=== PATIENT | male | born 1940 | race Caucasian/White ===

== ENCOUNTER 2021-10-03 06:10 | Day surgery (SDC) | payer MEDICARE ==
[~2021-10-03] VITALS: Ht 172.7 cm; Wt 63.6 kg
[2021-10-03] VITALS (8 sets, daily range): BP systolic 108–157; BP diastolic 46–115
[2021-10-03] MEDS ORDERED: fentaNYL/PF 50MCG/1 ML 2ML syringe ONE (06:22)
[2021-10-03] MEDS ORDERED: levoFLOXACIN-Levaquin 500mg/D5 100 ML IV ONE (06:22)
[2021-10-03] MEDS ORDERED: LIDOcaine Viscous 15ml cup ONE (06:22)
[2021-10-03] MEDS ORDERED: MIDAZolam 1 MG/ML 5ML VIAL ONE (06:22)
[2021-10-03] MEDS ORDERED: glucagon, human recombinant 1mg kit ONE (06:23)
[2021-10-03] MEDS ORDERED: iohexol 300 MG/1 ML 50ml polymer ONE (06:23)
[2021-10-03] MEDS ORDERED: NAPR220C15 PO (06:44)
[2021-10-03] MEDS ORDERED: CYAN500T71 PO (06:44)
[2021-10-03 07:06] LABS: BASOPHILS % (AUTO) 0.3 % (0-1); EOSINOPHILS # (AUTO) 0.1 X10'3 (0-0.9); EOSINOPHILS % (AUTO) 1.4 % (0-6); HEMATOCRIT 38.6 % (42.0-52.0); HEMOGLOBIN 13.4 g/dl (14.0-17.9); LYMPHOCYTES # (AUTO) 0.9 X10'3 (1.1-4.8); MEAN CORPUSCULAR HEMOGLOBIN 32.2 PG (27.0-31.0); MEAN CORPUSCULAR HGB CONC 34.7 g/dL (33.0-36.5); MEAN CORPUSCULAR VOLUME 92.8 FL (78-98); MEAN PLATELET VOLUME 8.4 FL (7.4-10.4); MONOCYTES # (AUTO) 0.5 X10'3 (0-0.9); MONOCYTES % (AUTO) 7.1 % (2-12); NEUTROPHILS # (AUTO) 5.7 X10'3 (1.8-7.7); NEUTROPHILS % (AUTO) 78.2 % (42-75); PLATELET COUNT 259 X10'3 (140-440); RED BLOOD COUNT 4.16 X10'6 (4.70-6.10); RED CELL DISTRIBUTION WIDTH 14.4 % (11.5-14.5); WHITE BLOOD COUNT 7.3 X10'3 (4.5-11.0)
[2021-10-03 07:18] LABS: ALANINE AMINOTRANSFERASE 89 U/L (12-78); ALBUMIN 2.7 G/DL (3.4-5.0); ALKALINE PHOSPHATASE 473 IU/L (46-116); ANION GAP 6 (8-16); ASPARTATE AMINO TRANSFERASE 70 U/L (10-37); BILIRUBIN,TOTAL 3.8 MG/DL (0.1-1.0); BLOOD UREA NITROGEN 12 MG/DL (7-18); BUN/CREATININE RATIO 16.2 (5.4-32.0); CALCIUM 8.9 MG/DL (8.5-10.1); CHLORIDE 107 MMOL/L (99-107); CREATININE 0.74 MG/DL (0.60-1.10); GLUCOSE 100 MG/DL (70-104); POTASSIUM 3.7 MMOL/L (3.5-5.1); SODIUM 142 MMOL/L (135-145); TOTAL CARBON DIOXIDE 28.7 MMOL/L (24-32); eGFR > 90 ML/MIN
[2021-10-03 07:26] LABS: ALBUMIN/GLOBULIN RATIO 0.6 (1.1-1.5); TOTAL PROTEIN 6.9 G/DL (6.4-8.2)
[2021-10-03 08:02] LABS: PARTIAL THROMBOPLASTIN TIME 28 SECONDS (22-32)
== END 2021-10-03 10:36 | disposition home or self-care (01) ==
LOC: GI LAB 06:10
PROVIDERS: ATTEND Internal Medicine Gastroenterology
DX: K80.50 Calculus of bile duct without cholangitis or cholecystitis without obstruction (principal); Z79.01 Long term (current) use of anticoagulants; Z85.46 Personal history of malignant neoplasm of prostate
CPT/HCPCS: 36415; 43264; 43274; 74328; 80053; 85025; 85610; 85730; 99153; C1769; C2625; G0500; J1610; J1956; J2250; J3010; J7040; Q9967; Z7512; Z7610; 43262; 99152; A4615

== ENCOUNTER 2021-10-22 15:03 | Day surgery (SDC) | payer MEDICARE ==
[~2021-10-22] VITALS: Ht 172.7 cm; Wt 63.6 kg
[2021-10-22] VITALS (8 sets, daily range): BP systolic 118–176; BP diastolic 59–91
[~2021-10-22 15:03] MED LIST: CYAN500T71 PO; NAPR220C15 PO
[2021-10-22] MEDS ORDERED: MIDAZolam 1 MG/ML 5ML VIAL ONE (15:08)
[2021-10-22] MEDS ORDERED: fentaNYL/PF 50MCG/1 ML 2ML syringe ONE (15:08)
[2021-10-22] MEDS ORDERED: iohexol 300 MG/1 ML 50ml polymer ONE (15:09)
[2021-10-22] MEDS ORDERED: glucagon, human recombinant 1mg kit ONE (15:09)
[2021-10-22] MEDS ORDERED: LIDOcaine Viscous 15ml cup ONE (15:10)
== END 2021-10-22 18:15 | disposition home or self-care (01) ==
LOC: GI LAB 15:03
PROVIDERS: ATTEND Internal Medicine Gastroenterology
DX: Z46.59 Encounter for fitting and adjustment of other gastrointestinal appliance and device (principal); K80.50 Calculus of bile duct without cholangitis or cholecystitis without obstruction
CPT/HCPCS: 43264; 43275; 74328; C1769; C1773; G0500; J1610; J2250; J3010; J7040; Q9967; Z7512; Z7610; 99152; 99153; A4620